=== PATIENT | male | born 1960 | race American Indian/Alaskan Native ===

== ENCOUNTER 2016-12-01 06:16 | Inpatient (IN) | payer MEDICARE ==
--- NOTE | 2016-11-25 10:12 | Anesthesia Consultation ---
Anesthesia Consult and Med Hx Date of service: 12/01/16 - Airway Anesthetic Teeth Evaluation: Good ROM Head & Neck: Adequate Mental/Hyoid Distance: Adequate Mallampati Class: Class II Intubation Access Assessment: Probably Good - Pulmonary Exam CTA: Yes - Cardiac Exam Cardiac Exam: RRR - Pre-Operative Health Status ASA Pre-Surgery Classification: ASA3 Proposed Anesthetic Plan: General - Pulmonary Hx Smoking: Yes (quit in 1995) - Cardiovascular System Hx Hypertension: Yes (15 YRS) Hx Coronary Artery Disease: Yes (2003 coronary stent;) Hx Percutaneous Transluminal Coronary Angioplasty (PTCA): Yes (2003) Hx Peripheral Vascular Disease: Yes (1YR; stent x5 2015) - Endocrine Hx Renal Disease: Yes (CHRONIC KIDNEY DESEASE) Hx Insulin Dependent Diabetes: Yes - Other Systems Hx Cancer: Yes - Additional Comments Anesthesia Medical History Comments: cardiac clearence on chart, EF 49%
[2016-11-25 10:18] LABS: Basophils % (Auto) 0.9 % (0.0-1.8); Eosinophils % (Auto) 2.4 % (0.0-4.3); Hematocrit 48.1 % (35.5-45.6); Hemoglobin 15.7 gm/dl (11.8-15.2); Mean Corpuscular HGB Conc 33 % (32-34); Mean Corpuscular Hemoglobin 30 pg (28-32); Mean Corpuscular Volume 91 fl (84-94); Platelet Count 210 K/mm3 (140-440); Red Blood Count 5.28 M/mm3 (3.65-5.03); Red Cell Distribution Width 15.4 % (13.2-15.2); White Blood Count 5.1 K/mm3 (4.5-11.0)
[2016-11-25 10:28] LABS: INR 0.92 (0.87-1.13)
[2016-11-25 10:29] LABS: BUN/Creatinine Ratio 15.55; Calcium 8.7 mg/dL (8.4-10.2); Chloride 103.8 mmol/L (98-107); Potassium 4.9 mmol/L (3.6-5.0)
[2016-12-01] MEDS ORDERED: NACL BACTERIOSTATIC INFILTRATI ONE (06:44)
[2016-12-01] MEDS ORDERED: NACL 0.9% 1000 ML 1,000 ML ONE (07:16)
[2016-12-01] MEDS ORDERED: XYLOCAINE 1% 20 mL ONE (07:17)
[2016-12-01] MEDS ORDERED: NACL 0.9% 1000 ML 1,000 ML IV SCH ×3 (07:30→08:00)
[2016-12-01] MEDS ORDERED: DIPRIVAN 10 MG/ML IV ONE (07:51)
[2016-12-01] MEDS ORDERED: DILAUDID ONE ×2 (07:51→10:11)
[2016-12-01] MEDS ORDERED: XYLOCAINE MPF 2% ONE (07:51)
[2016-12-01] MEDS ORDERED: ZEMURON IV ONE ×2 (07:51→10:09)
[2016-12-01] MEDS ORDERED: ANCEF/STERILE WATER 2 GM/20 ML 20 ML IV NR ×2 (08:00)
[2016-12-01] MEDS ORDERED: NACL 0.9% 500 ML ONE (08:00)
[2016-12-01] MEDS ORDERED: VERSED IV NR (08:00)
[2016-12-01] MEDS ORDERED: ANCEF/STERILE WATER 2 GM/20 ML 20 ML IV SCH (08:00)
[2016-12-01] MEDS ORDERED: PEPCID PO NR (08:00)
[2016-12-01] MEDS ORDERED: DECADRON ONE (09:04)
[2016-12-01] MEDS ORDERED: ZOFRAN ONE (09:05)
[2016-12-01] MEDS ORDERED: HEPARIN 10,000 UNITS/10 ML ONE (09:05)
[2016-12-01] MEDS ORDERED: HEPARIN 10,000 UNITS/10 ML 2,000 UNIT in NACL 0.9% 500 ML 500 ML IR ONE (09:09)
[2016-12-01] MEDS ORDERED: THROMBIN (BOVINE) TP ONE (09:09)
[2016-12-01] MEDS ORDERED: GELFOAM TP ONE (09:09)
[2016-12-01] MEDS ORDERED: NACL 0.9% IR ONE (09:09)
[2016-12-01] MEDS ORDERED: DILAUDID IV PRN (09:28)
[2016-12-01] MEDS ORDERED: ZOFRAN IV PRN ×2 (09:28→14:19)
--- NOTE | 2016-12-01 09:28 | Anesthesia Day of Surgery ---
Anesthesia Day of Surgery - Day of Surgery Patient Examined: Yes Patient H&P Reviewed: Yes Patient is NPO: Yes Beta Blockers: Yes Cardiac Clearance: Yes
[2016-12-01] MEDS ORDERED: HEPARIN 10,000 UNITS/10 ML 4,000 UNIT in NACL 0.9% 1000 ML 1,000 ML IR ONE (12:10)
[2016-12-01] MEDS ORDERED: OMNIPAQUE (300 MG) 100 ML in NACL 0.9% 50 ML IR ONE (12:38)
[2016-12-01] MEDS ORDERED: ANCEF ONE (13:14)
--- NOTE | 2016-12-01 13:59 | Operative Report ---
Operative Report Operative Report: Pre-operative diagnosis: Peripheral vascular disease with rest pain and ulceration Post-operative diagnosis: The same Procedure name(s): Left common femoral-femoral graft to below-knee popliteal artery bypass with spliced nation of in situ and reverse ipsilateral greater saphenous vein. Completion angiogram. Surgeon: Jeronimo Schwarz MD, RPVI Ore Grader: Rachel Martin DO Anesthesia: Gen. Findings #1 significant amount of scarring in the right groin due to previously done femoro femoral bypass. Difficulty in dissecting the left linder of the femoral- femoral bypass. #2 Triphasic Doppler signal and strong palpable pulse in the popliteal artery distal to the anastomosis. #3 no evidence of technical problems on the completion angiogram. Specimens: None EBL: 250 mL IV fluids: 2400 mL Urine output: 600 mL Disposition: The recovery Indications: Occluded entire SFA on the left with rest pain and tissue loss. Procedure: Patient was brought to the operating room and laid on the operating room table in supine position. After general endotracheal anesthesia was achieved patient was prepped and draped in usual sterile fashion. The left leg was bent at the knee and externally rotated. Longitudinal incision in the left groin was made using #15 blade. The subcutaneous tissue was divided with Bovie electrocautery. Large amount of scar tissue was noted in the left groin due to previous femorofemoral bypass. The left end of femoral femoral bypass graft was carefully dissected free using 15 blade it was encircled with a vessel loop proximally. The linder of the graft was also carefully dissected long enough for proximal anastomosis.the greater saphenous vein was interrogated with an ultrasound. It divided in about mid thigh. There was a narrow portion of the proper greater saphenous vein from mid thigh down to about the knee. Past that the vein was good. There was a 2nd the more superficial branch that had excellent size throughout the thigh but was very small starting from the knee down. We decided to use the ipsilateral greater saphenous vein and see if it would dilate. The alternative plan would be is to use the portion of the duplicate greater saphenous vein and proper greater saphenous vein distally as a spliced vein. The groin incision was lengthened along the thigh and the greater saphenous vein was dissected to the point where it bifurcated. Both branches were preserved. All other branches were ligated using 4-0 silk ties and clips. The vein become mobile that felt that that would reach easily without tension to the with of the femoral-femoral graft. After the vein was completely mobilized in the incision that attention was then into the popliteal area. The incision midway between tibia and fibula was made using #15 blade. The incision was deepened with Bovie electrocautery. Both branches of the vein were located and dissected free all the branches were ligated using 4-0 silk ties and clips. The proper greater saphenous vein appeared to be larger. The crural fascia was divided with Bovie electrocautery and the gastrocnemius muscles was retracted downwards. The the popliteal vein was dissected and pushed down and the popliteal artery was carefully dissected from the top. Once adequate length of the artery was exposed it was encircled with vessel loops proximally and distally. The counter incision was then made above the knee and the tunnel was developed between the heads of the gastrocnemius muscles. Patient received 5000 units of heparin. The arteriotomy on the linder of femral femoral bypass was made after the vascular clamps were applied using # 11 blade and Toscano scissors. The vein was spatulated. The proximal anastomosis was created using the 5-0 Prolene running suture. Prior to completion of the anastomosis back bleeding maneuvers were performed and were good. The anastomosis was completed. The greater saphenous vein was disconnected distally and infiltrated with heparinized saline. The narrowed area did not dilate. The LeMaitre valvulotome was then passed and all the valves were lysed but was not good bleeding, and of the distal end. The valvulotomy the repeated one more time out good bleeding common distally. The valvulotome then was passed through the duplicate greater saphenous vein and a dilated well up until the knee but the distal end of the duplicate vein did not dilate. An attempt to dilate the distal end was made using heparinized saline unsuccessfully. There was an excellent pulse to the knee but no good flow from the distal portion of the duplicate greater saphenous vein. At this point we decided to spliced the distal portion of the greater saphenous vein with proximal portion of the duplicate greater saphenous vein. The distal portion of the greater saphenous vein vein was disconnected and Toscano scissors. It was reversed and spatulated for the anastomosis. The distal portion of the duplicate greater saphenous vein was also disconnected and the proximal portion was spatulated for the anastomosis. The distal portion of the greater saphenous vein was anastomosed to the proximal portion of the duplicate greater saphenous vein using 2 of 7-0 Prolene running sutures. After completion of the anastomosis there was a great pulse and excellent flow from the distal end of the vein. The vein was then tunneled to the popliteal artery. The distal anastomosis was created first by making an arteriotomy in the popliteal artery after vessel was occluded using vessel loops. The end of the vein was spatulated using Toscano scissors and then anastomosis was created using 6-0 Prolene running suture. Prior to completion of the anastomosis the vessel loops were released and good back bleeding was seen. It was irrigated with heparinized saline and anastomosis was completed. The leg was straightened to make sure that we had enough vein. The 22 gauge angiocatheter was inserted into the vein bypass and the completion angiogram was performed. There were no anastomotic issues. One branch was identified and successful ligated using a clip The wounds were inspected for bleeding and hemostasis was adequate. All wounds were closed using 2-0 and 3-0 Vicryl and zonia in the skin. Patient tolerated procedure well was transferred to the recovery room. At the end of the case all instrument sponge and needle counts were correct.
--- NOTE | 2016-12-01 14:12 | Admit Criteria Form ---
Admission Criteria Documentation: AMBULATORY SURGERY EXCEPTION CRITERIA Ambulatory Surgery Exception Criteria ( Place 'X' for any and all applicable criteria): Surgery or procedure performed on ambulatory basis may require inpatient stay for[A] ANY ONE of the following(1)(2)(3)(4)(5)(6)(7)(8)(9): [X] I. A preoperative situation, condition, or finding that warrants inpatient stay as indicated by ANY ONE of the following: [] a) Inpatient care needed because of severity of a disease or condition rather than the surgery (eg, severe cardiac or respiratory disease, severe infection) (15) (16 ) (17) (18) [] b) Emergent procedure (eg, angioplasty for acute ischemia)(19) [] c) Complex surgical approach or situation as indicated by ANY ONE of the following(3): [] i) Open approach needed instead of usual endoscopic, transcatheter, or other less invasive procedure [] ii) Difficult approach because of previous operation [] iii) Airway monitoring required after open neck procedures(20)(21) [] iv) Large mass requiring unusually extensive dissection [] v) Additional complicating feature requiring inpatient care (eg, drain management)(22(23): [X] d) Major surgery in a pt with high anesthetic risk as indicated by ANY ONE of the following (2)(3)(5)(7)(8): [X] i) ASA risk class III or higher (severe systemic disease impairing function) [D] [] ii) Advanced age (eg, older than 85 years)(14)(24) [] iii) Symptomatic heart failure(25) [] iv) Symptomatic asthma or COPD(8)(21) [] v) Morbid obesity with hemodynamic or respiratory problems(20)( 21)(26)(27) [] vi) Obstructive sleep apnea(20)(21) [] vii) Former premature infants who are younger than 60 weeks [] viii) High risk for severe postoperative abnormalities (eg, severe postoperative hypocalcemia after parathyroidectomy for severe hyperparathyroidism)(27)( 28) [] ix) Unstable angina(25) [] e) Drug-related risk requiring inpatient stay as indicated by ANY ONE of the following(5)(10)(14)(32)(33) [] i) Procedure requires discontinuing drugs or other therapy (eg , antiarrhythmic medication, antiseizure medication), which necessitates inpatient observation or treatment.(18)(31) [] ii) Major surgery and high risk drug use as indicated by ANY ONE of the following: [] 1) Active abuse of cocaine or similar drug [] 2) Monoamine oxidase inhibitor use [] 3) Other drug identified as posing risk [] f) Inadequate outpatient care situation as indicated by ANY ONE of the following(5)(10)(14)(32)(33) [] i) Patient lives remote from medical facility and procedure has urgent complication potential, and temporary nearby residence cannot be arranged [] ii) Patient will have postprocedure incapacitation and inadequate assistance at home, or alternative level of care cannot be arranged. [] iii) Patient will have long general anesthesia or procedure side effect resolution time, and competent person to stay with patient on first postoperative night at home or alternative level of care cannot be arranged. []iv) Other inadequate outpatient situation that cannot be handled by other means [] II. A perioperative event, condition, or finding that warrants inpatient stay as indicated by ANY ONE of the following (1)(2)(3): [] a) Inadequate physiologic recovery: cardiovascular, respiratory, or hemodynamic status not normal or near preoperative baseline(18) [] b) Hemodynamic instability [] c) Patient not alert with near normal or baseline mental status [] d) Temperature not normal or as expected and not appropriate for outpatient treatment of condition [] e) Ambulatory or appropriate activity level status not yet achieved post procedure [E](34)(35)(36) [] f) Operative site not appropriate (eg, unexpected or excessive drainage or bleeding) [] g) Postoperative effects not resolved or adequately managed (eg, significant pain or vomiting not appropriate for outpatient or next level of care)(10)(12) [] h) Complicating features requiring inpatient care as indicated by ANY ONE of the following(37): [] i) Severe complications of procedure (eg, bowel injury, airway compromise, vascular injury,severe hemorrhage) [] ii) Extensive (eg, dissection far beyond usual scope of procedure ) or prolonged (eg, 120 minutes beyond usual) surgery needed requiring inpatient postoperative care [] iii) Conversion to an open or complex procedure that requires inpatient care (eg, open vs laparoscopic cholecystectomy, abdominal vs vaginal hysterectomy)(38) [] iv) Comorbid condition or test result identified during or post procedure that requires inpatient care (7) [] v) Malignant hyperthermia(30) [] vi) Other complicating feature requiring inpatient care(22)(23) Inpatient stay may be needed until ALL of the following are present (1)(2)(3)(4) (5)(6)(10)(14)(33)(40): []a) Physiologic recovery: cardiovascular, respiratory, and hemodynamic status normal or near preoperative baseline []b) Hemodynamic stability []c) Patient alert, with near normal or baseline mental status []d) Temperature appropriate: patient afebrile or temperature appropriate for outpt treatment of condition []e) Activity level appropriate: ambulatory or appropriate activity level post procedure []f) Operative site appropriate as indicated by ALL of the following: []i) Site dry or with expected drainage []ii) Any blood noted is as expected for procedure. []g) Postoperative effects resolved or managed as indicated by ALL of the following: []i) Pain management appropriate for outpatient (or next level of) care(10) []ii) Minimal nausea and vomiting: if present, successfully treated with oral medication(12) []iii) Headache, dizziness, or drowsiness (if present) are mild. []h) Voiding status acceptable as indicated by ANY ONE of the following: []i) Voiding spontaneously []ii) No voiding but instructions given for follow-up in 6 to 8 hours []iii) Urinary catheter in place, and instructions given for follow-up []i) Complicating features requiring inpatient care manageable at a lower level of care(37) []j) Comorbid conditions manageable at a lower level of care(37) The original [employer] content created by [employer] has been revised. The portions of the content which have been revised are identified through the use of italic text or in bold, and [facility] [employer] has neither reviewed nor approved the modified material. All other unmodified content is copyright [employer]. Please see references footnoted in the original [employer] edition 2016 Admission Criteria Met: Yes
[2016-12-01] MEDS ORDERED: NARCAN 0.4 MG/1 ML IV PRN (14:19)
[2016-12-01] MEDS ORDERED: NORCO 5/325 PO PRN (14:19)
[2016-12-01] MEDS ORDERED: MORPHINE IV PRN ×2 (14:19)
--- NOTE | 2016-12-01 14:27 | Post Anesthesia Evaluation ---
- Post Anesthesia Evaluation Patient Participated: Yes Airway Patent: Yes Stable Respiratory Function: Yes Nausea/Vomiting: No Temp > 96.8F: Yes Pain Manageable: Yes Adequeate Hydration: Yes Anesthesia Complications: No Block Receding Appropriately: Not Applicable Patient on Ventilator: No
[2016-12-01] MEDS ORDERED: NORMODYNE IV PRN (14:35)
[2016-12-01] MEDS ORDERED: NORMODYNE IV ONE (14:56)
[2016-12-01] MEDS: NORMODYNE IV PRN ×2 (15:00→15:15)
[2016-12-01] MEDS ORDERED: ANCEF/NS 1 GM/50 ML 50 ML IV SCH (15:00)
[2016-12-01] MEDS ORDERED: APRESOLINE ONE (15:28)
[2016-12-01] MEDS: APRESOLINE IV PRN ×2 (15:31→16:05)
[2016-12-01] MEDS ORDERED: APRESOLINE IV PRN (15:31)
[2016-12-01] MEDS: ANCEF/NS 1 GM/50 ML 50 ML IV SCH (21:30)
[2016-12-01] MEDS ORDERED: PRAVASTATIN 20 MG PO SCH (22:00)
[2016-12-01] MEDS ORDERED: TERAZOSIN 2 MG PO SCH (22:00)
[2016-12-01] MEDS: ZOCOR PO SCH (22:53)
[2016-12-01] MEDS: COREG PO SCH (22:54)
[2016-12-01] MEDS: MINIPRESS PO SCH (23:18)
[2016-12-02] MEDS ORDERED: NOVOLOG SUB-Q ONE (12:55)
--- NOTE | 2016-12-02 13:54 | Consultation ---
History of Present Illness - Reason for Consult Consult date: 12/02/16 Post-op ICU care Requesting physician: ANGEL LUIS SOUSA - History of Present Illness 56 y/o male post op vascular procedure Past History Past Medical History: hypertension, hyperlipidemia, other (peripheral vascular disease) Past Surgical History: Other (prior vasular procedures) Medications and Allergies Allergies Allergy/AdvReac Type Severity Reaction Status Date / Time ciprofloxacin [From Cipro] Allergy Rash Verified 04/23/14 11:11 ciprofloxacin HCl Allergy Rash Verified 04/23/14 11:11 [From Cipro] Home Medications Medication Instructions Recorded Confirmed Last Taken Type Carvedilol [Coreg] 25 mg PO BID 04/01/14 12/01/16 12/01/16 History Clopidogrel [Plavix] 75 mg PO DAILY 04/01/14 12/01/16 11/26/16 History Insulin NPH/Regular [NovoLIN 70/30] 15 units SQ BS 04/01/14 12/01/16 11/30/16 History amLODIPine [Norvasc] 10 mg PO DAILY 04/01/14 12/01/16 11/30/16 History Cilostazol [Pletal] 100 mg PO BID 05/19/16 12/01/16 11/30/16 History Pravastatin (Nf) [Pravachol] 20 mg PO QHS 05/19/16 12/01/16 11/30/16 History Terazosin(Nf) [Hytrin (Nf)] 2 mg PO QHS 05/19/16 12/01/16 11/30/16 History Amoxicillin [Trimox CAP] 500 mg PO Q8H 12/01/16 12/01/16 11/30/16 History Active Meds: Active Medications Acetaminophen/Hydrocodone Bitart (Benson 5/325) 2 each PO Q6H PRN PRN Reason: Pain, Moderate (4-6) Amlodipine Besylate (Norvasc) 10 mg PO DAILY FOR[facility]LY [facility], [facility]1983 Carvedilol (Coreg) 25 mg PO BID [facility], [facility]1983 Last Admin: 12/01/16 22:54 Dose: 25 mg Clopidogrel Bisulfate (Plavix) 75 mg PO DAILY [facility], [facility]1983 Enoxaparin Sodium (Lovenox) 40 mg SUB-Q QDAY [facility], 1928–1983 Sodium Chloride (Nacl 0.9% 1000 Ml) 1,000 mls @ 100 mls/hr IV DIRECT [facility], [facility]1983 Insulin Human Isoph/Insulin Regular (Novolin 70/30) 15 unit SUB-Q BIDDIAB [facility], [facility]1983 Morphine Sulfate (Morphine) 2 mg IV Q4H PRN PRN Reason: Pain, Moderate (4-6) Morphine Sulfate (Morphine) 4 mg IV Q4H PRN PRN Reason: Pain , Severe (7-10) Last Admin: 12/01/16 19:27 Dose: 4 mg Naloxone HCl (Narcan 0.4 Mg/1 Ml) 0.1 mg IV Q2MIN PRN PRN Reason: Res Rate </= 8 or 02 SAT < 92% Ondansetron HCl (Zofran) 4 mg IV Q8H PRN PRN Reason: Nausea And Vomiting Last Admin: 12/01/16 19:27 Dose: 4 mg Prazosin HCl (Minipress) 1 mg PO BID [facility]1983 Last Admin: 12/01/16 23:18 Dose: 1 mg Simvastatin (Zocor) 10 mg PO QHS [facility] Last Admin: 12/01/16 22:53 Dose: 10 mg Review of Systems All systems: negative Exam - Constitutional Vitals: Temp Pulse Resp BP Pulse Ox 98.9 F 93 H 20 149/88 97 12/02/16 00:00 12/02/16 03:00 12/02/16 03:43 12/02/16 03:00 12/02/16 03:43 Results - Labs CBC & Chem 7: 11/25/16 09:09 11/25/16 09:09 Labs: Abnormal lab results 12/01/16 12/01/16 Range/Units 14:29 23:34 POC Glucose 147 H 161 H (70-105) Assessment and Plan 56 y/o male status post vascular procedure. 1. OOB to chair 2. Follow up vascular recs 3. May need PRN hydralazine 4. From a critical care standpoint, stable for transfer to the floor.
[2016-12-02 14:49] LABS: Hematocrit 45.9 % (35.5-45.6); Hemoglobin 14.8 gm/dl (11.8-15.2)
[2016-12-02 14:49] LABS: BUN/Creatinine Ratio 14.37; Calcium 8.4 mg/dL (8.4-10.2); Chloride 105.6 mmol/L (98-107); Potassium 5.1 mmol/L (3.6-5.0)
[2016-12-02] MEDS: NOVOLOG SUB-Q SCH ×2 (18:06→23:37)
[2016-12-02] MEDS: PLAVIX PO SCH (20:11)
[2016-12-02] MEDS: NORVASC PO SCH (20:11)
[2016-12-02] MEDS: LOVENOX SUB-Q SCH (20:11)
[2016-12-02] MEDS: MINIPRESS PO SCH ×2 (20:11→21:31)
[2016-12-02] MEDS: COREG PO SCH ×2 (20:11→21:31)
[2016-12-02] MEDS: ANCEF/NS 1 GM/50 ML 50 ML IV SCH (20:11)
[2016-12-02] MEDS: ZOCOR PO SCH (21:31)
[2016-12-03] MEDS: NOVOLOG SUB-Q SCH ×2 (08:46→12:56)
--- NOTE | 2016-12-03 09:42 | Progress Note ---
Assessment and Plan Postop day 2 status post left femoral-femoral graft to below-knee popliteal artery bypass with spliced in situ duplicate greater saphenous vein proximally and the reversed distal component of greater saphenous vein. Left leg well vascularized. Patient is able to ambulate well enough for discharge. Medically stable, tolerating diet. No evidence of wound infections or any other wound problems. Plan: We will discharge today. We'll keep the wounds open to air. We'll follow up in 2 weeks. Subjective Date of service: 12/03/16 Principal diagnosis: peripheral vascular disease Interval history: Patient reports no complaints. Able to walk around without pain. Objective - Exam Narrative Exam: All incision clean and dry and intact. Strong palpable graft pulse. Left foot warm with normal color. - Constitutional Vitals: Vital Signs - 12hr 12/02/16 12/02/16 12/02/16 21:01 21:30 22:00 Temperature Pulse Rate 96 H Respiratory 15 Rate Respiratory 16 Rate [L lower extremity] Blood Pressure 134/82 O2 Sat by Pulse 95 95 Oximetry 12/02/16 12/02/16 12/03/16 22:01 23:01 00:00 Temperature 98.6 F Pulse Rate 93 H 89 91 H Respiratory 24 22 23 Rate Respiratory Rate [L lower extremity] Blood Pressure 134/82 134/82 140/86 O2 Sat by Pulse 95 94 95 Oximetry 12/03/16 12/03/16 12/03/16 01:01 02:01 04:00 Temperature 98.8 F Pulse Rate 90 91 H 90 Respiratory 15 21 20 Rate Respiratory Rate [L lower extremity] Blood Pressure 140/86 132/69 134/83 O2 Sat by Pulse 97 93 96 Oximetry 12/03/16 12/03/16 06:01 08:00 Temperature 98.5 F Pulse Rate 89 Respiratory 22 Rate Respiratory Rate [L lower extremity] Blood Pressure 134/83 O2 Sat by Pulse 95 Oximetry - Labs CBC & Chem 7: 12/02/16 05:11 12/02/16 04:00 Labs: Abnormal lab results 12/02/16 12/02/16 12/02/16 Range/Units 04:00 05:11 07:48 Hct 45.9 H (35.5-45.6) % Potassium 5.1 H (3.6-5.0) mmol/L Carbon Dioxide 18 L (22-30) mmol/L BUN 23 H (9-20) mg/dL Creatinine 1.6 H (0.8-1.5) mg/dL Glucose 167 H (75-100) mg/dL POC Glucose 154 H (70-105) 12/02/16 12/02/16 Range/Units 11:23 16:11 Hct (35.5-45.6) % Potassium (3.6-5.0) mmol/L Carbon Dioxide (22-30) mmol/L BUN (9-20) mg/dL Creatinine (0.8-1.5) mg/dL Glucose (75-100) mg/dL POC Glucose 190 H 144 H (70-105)
--- NOTE | 2016-12-03 10:31 | Discharge Summary ---
Providers - Providers Date of Admission: 12/01/16 06:16 Date of discharge: 12/03/16 Attending physician: JERONIMO SCHWARZ 12/01/16 14:19 Consult to Physician [CONS] Routine Consulting Provider: YASMINE CLEMENTE Reason For Exam: ICU admit Place consult to:: Notified:: yes Was contact made?: Yes If yes, spoke with:: Sent a text. 12/02/16 13:11 Physical Therapy Evaluation and Treat [CONS] Routine Comment: Reason For Exam: ambulation Primary care physician: MARIA DE JESUS FUENTES Hospitalization Reason for admission: PVD with ulceration and rest pain Condition: Stable Procedures: Operative Report Operative Report: Pre-operative diagnosis: Peripheral vascular disease with rest pain and ulceration Post-operative diagnosis: The same Procedure name(s): Left common femoral-femoral graft to below-knee popliteal artery bypass with spliced nation of in situ and reverse ipsilateral greater saphenous vein. Completion angiogram. Surgeon: Jeronimo Schwarz MD, RPVI Digital Operations Analyst: Rachel Martin DO Anesthesia: Gen. Findings #1 significant amount of scarring in the right groin due to previously done femoro femoral bypass. Difficulty in dissecting the left linder of the femoral- femoral bypass. #2 Triphasic Doppler signal and strong palpable pulse in the popliteal artery distal to the anastomosis. #3 no evidence of technical problems on the completion angiogram. Specimens: None EBL: 250 mL IV fluids: 2400 mL Urine output: 600 mL Disposition: The recovery Indications: Occluded entire SFA on the left with rest pain and tissue loss. Hospital course: Pt was admitted in preparation for the above stated procedure which was completed without complication. Post operatively the he was transfer to the recovery room and subsequently to the ICU. He did well. His activity was increased, and he was transferred to the Med/surg floor. By POD 2, the pt was evaluated, and appeared stable to d/c home. D/c instructions were given to the pt. He is to f/u in 2 wks. Disposition: DISCHARGED TO HOME OR SELFCARE - Discharge Diagnoses (1) Atherosclerosis of [place] arteries of extremity with rest pain Status: Acute Qualifiers: Peripheral atherosclerosis location: P Laterality: L Core Measure Documentation - Palliative Care Palliative Care/ Comfort Measures: Not Applicable - Core Measures Any of the following diagnoses?: none Exam - Constitutional Vitals: Temp Pulse Resp BP Pulse Ox 98.5 F 92 H 14 152/94 96 12/03/16 08:00 12/03/16 08:00 12/03/16 08:36 12/03/16 08:00 12/03/16 08:36 General appearance: Present: no acute distress - EENT Eyes: Present: EOM intact ENT: hearing intact - Respiratory Respiratory effort: normal - Extremities Extremities: no ischemia, normal temperature, abnormal (Incissions without s/s of postop infection.) - Psychiatric Psychiatric: appropriate mood/affect, intact judgment & insight, cooperative - Neurologic Neurologic: no focal deficits Plan Activity: advance as tolerated Weight Bearing Status: Weight Bear as Tolerated Diet: regular Wound: keep clean and dry Additional Instructions: Follow up with Dr Schwarz Prescriptions: oxyCODONE /ACETAMINOPHEN [Percocet 5/325] 1 - 2 tab PO Q4HR #40 tab
--- NOTE | 2016-12-03 10:47 | Progress Note ---
Assessment and Plan 56 y/o male status post vascular procedure. 1. Discharged per primary. Subjective Date of service: 12/03/16 Principal diagnosis: peripheral vascular disease Interval history: Being discharged today. No acute events last night Objective - Constitutional Vitals: Vital Signs - 12hr 12/02/16 12/03/16 12/03/16 23:01 00:00 01:01 Temperature 98.6 F Pulse Rate 89 91 H 90 Respiratory 22 23 15 Rate Blood Pressure 134/82 140/86 140/86 O2 Sat by Pulse 94 95 97 Oximetry 12/03/16 12/03/16 12/03/16 02:01 04:00 06:01 Temperature 98.8 F Pulse Rate 91 H 90 89 Respiratory 21 20 22 Rate Blood Pressure 132/69 134/83 134/83 O2 Sat by Pulse 93 96 95 Oximetry 12/03/16 12/03/16 08:00 08:36 Temperature 98.5 F Pulse Rate 92 H Respiratory 23 14 Rate Blood Pressure 152/94 O2 Sat by Pulse 92 96 Oximetry General appearance: Present: no acute distress, well-nourished - EENT Eyes: PERRL, EOM intact ENT: hearing intact, clear oral mucosa - Neck Neck: supple, normal ROM - Respiratory Respiratory effort: normal Respiratory: bilateral: CTA - Cardiovascular Rhythm: regular Heart Sounds: Present: S1 & S2. Absent: gallop, rub - Labs CBC & Chem 7: 12/02/16 05:11 12/02/16 04:00 Labs: Abnormal lab results 12/02/16 12/02/16 12/02/16 Range/Units 04:00 05:11 07:48 Hct 45.9 H (35.5-45.6) % Potassium 5.1 H (3.6-5.0) mmol/L Carbon Dioxide 18 L (22-30) mmol/L BUN 23 H (9-20) mg/dL Creatinine 1.6 H (0.8-1.5) mg/dL Glucose 167 H (75-100) mg/dL POC Glucose 154 H (70-105) 12/02/16 12/02/16 12/03/16 Range/Units 11:23 16:11 08:30 Hct (35.5-45.6) % Potassium (3.6-5.0) mmol/L Carbon Dioxide (22-30) mmol/L BUN (9-20) mg/dL Creatinine (0.8-1.5) mg/dL Glucose (75-100) mg/dL POC Glucose 190 H 144 H 126 H (70-105)
[2016-12-03] MEDS: LOVENOX SUB-Q SCH (12:53)
[2016-12-03] MEDS: PLAVIX PO SCH (12:53)
[2016-12-03] MEDS: NORVASC PO SCH (12:53)
[2016-12-03] MEDS: MINIPRESS PO SCH (12:53)
[2016-12-03] MEDS: COREG PO SCH (12:54)
[2016-12-03 16:11] VITALS: BP 132/87
[2016-12-04] MEDS ORDERED: VERSED IV NR (08:00)
== END 2016-12-03 17:31 | disposition home or self-care (01) | DRG 253 ==
LOC: 3A 06:16 → CC1 16:28
PROVIDERS: ADMIT Internal Medicine; ATTEND Surgery Vascular Surgery
PROC: 041L0AL Bypass Left Femoral Artery to Popliteal Artery with Autologous Arterial Tissue, Open Approach (ICD-10-PCS; principal; 2016-12-01)
PROC: 06BQ3ZZ Excision of Left Saphenous Vein, Percutaneous Approach (ICD-10-PCS; 2016-12-01)
DX: I70.249 Atherosclerosis of native arteries of left leg with ulceration of unspecified site (principal); N18.4 Chronic kidney disease, stage 4 (severe); E11.22 Type 2 diabetes mellitus with diabetic chronic kidney disease; I12.9 Hypertensive chronic kidney disease with stage 1 through stage 4 chronic kidney disease, or unspecified chronic kidney disease; F17.200 Nicotine dependence, unspecified, uncomplicated; L98.499 Non-pressure chronic ulcer of skin of other sites with unspecified severity; Z88.8 Allergy status to other drugs, medicaments and biological substances; Z82.49 Family history of ischemic heart disease and other diseases of the circulatory system; Z93.3 Colostomy status
CPT/HCPCS: 36415; 80048; 82962; 85014; 85018; 85025; 85610; 86850; 86900; 86901; A4649; C1757; J0360; J0690; J1100; J1170; J1644; J1650; J1815; J2250; J2270; J2405; J2704; J3246; J7030; J7040; Q9966

== ENCOUNTER 2019-05-19 12:59 | Outpatient (CLI) | payer MEDICARE ==
[2019-05-19 13:19] LABS: Basophils % (Auto) 0.4 % (0.0-1.8); Eosinophils # (Auto) 0.1 K/mm3 (0.0-0.4); Hematocrit 49.5 % (35.5-45.6); Hemoglobin 16.6 gm/dl (11.8-15.2); Lymphocytes % (Auto) 17.6 % (13.4-35.0); Mean Corpuscular HGB Conc 34 % (32-34); Mean Corpuscular Hemoglobin 31 pg (28-32); Mean Corpuscular Volume 92 fl (84-94); Monocytes # (Auto) 0.6 K/mm3 (0.0-0.8); Monocytes % (Auto) 11.2 % (0.0-7.3); Platelet Count 226 K/mm3 (140-440); Red Cell Distribution Width 14.8 % (13.2-15.2)
[2019-05-19 13:38] LABS: Calcium 9.3 mg/dL (8.4-10.2)
== END 2019-05-19 13:00 | disposition home or self-care (01) ==
LOC: XRAY 12:59
PROVIDERS: ATTEND Internal Medicine Nephrology
DX: I12.9 Hypertensive chronic kidney disease with stage 1 through stage 4 chronic kidney disease, or unspecified chronic kidney disease (principal); E11.22 Type 2 diabetes mellitus with diabetic chronic kidney disease; N18.4 Chronic kidney disease, stage 4 (severe); E87.2 Acidosis; E55.9 Vitamin D deficiency, unspecified; R80.0 Isolated proteinuria
CPT/HCPCS: 36415; 80048; 85025

== ENCOUNTER 2020-11-19 09:58 | Outpatient (CLI) | payer MEDICARE ==
--- NOTE | 2020-11-19 10:53 | XRay Report ---
CHEST 2 VIEWS INDICATION: End-Stage Renal Disease (ESRD). COMPARISON: None FINDINGS: Support devices: None. Heart: Within normal limits. Lungs/pleura: No acute air space or interstitial disease. No pneumothorax. Additional findings: None. IMPRESSION: No acute findings. Signer Name: Hiro Fuentes Jr, MD Signed: 11/19/2020 10:49 AM Workstation Name: [id number]
== END 2020-11-19 09:59 | disposition home or self-care (01) ==
LOC: XRAY 09:58
PROVIDERS: ATTEND Internal Medicine Nephrology
DX: N18.6 End stage renal disease (principal)
CPT/HCPCS: 71046